=== PATIENT | male | born 1960 | race African-American/Black ===

== ENCOUNTER 2017-11-03 05:20 | Emergency (ER) | payer OTHER, BC ==
[~2017-11-03] VITALS: Ht 182.9 cm; Wt 90.9 kg
[~2017-11-03 05:20] MED LIST: LORTAB 7.5 OR; SEPTRA DS1 TAB OR
[2017-11-03] MEDS ORDERED: FLEXERIL PO (07:42)
[2017-11-03] MEDS ORDERED: MOTRIN800 MG PO (07:42)
[2017-11-03 07:48] VITALS: BP 157/80
== END 2017-11-03 07:55 | disposition home or self-care (01) | DRG 914 ==
LOC: ED 05:20
PROC: 0HQ1XZZ Repair Face Skin, External Approach (ICD-10-PCS; principal; 2017-11-03)
DX: S09.90XA Unspecified injury of head, initial encounter (principal); S01.111A Laceration without foreign body of right eyelid and periocular area, initial encounter; S63.502A Unspecified sprain of left wrist, initial encounter; V53.5XXA Driver of pick-up truck or van injured in collision with car, pick-up truck or van in traffic accident, initial encounter; Y92.413 State road as the place of occurrence of the external cause

== ENCOUNTER 2017-11-11 09:07 | Emergency (ER) | payer OTHER, BC ==
[~2017-11-11] VITALS: Ht 182.9 cm; Wt 81.0 kg
[~2017-11-11 09:07] MED LIST changes: +FLEXERIL PO; +MOTRIN800 MG PO
[2017-11-11 09:43] VITALS: BP 144/75
== END 2017-11-11 09:47 | disposition home or self-care (01) | DRG 950 ==
LOC: ED 09:07
DX: S01.111D Laceration without foreign body of right eyelid and periocular area, subsequent encounter (principal)

== ENCOUNTER 2019-01-22 13:03 | Day surgery (SDC) | payer BC ==
[~2019-01-22 13:03] MED LIST changes: +COMPAZINE10 MG PO; +NAPROXEN250 MG PO; +PERCOCET 5/321 COMBO PO; +VISTARIL25 MG PO
[2019-01-22 15:32] VITALS: BP 151/89
[2019-02-01] MEDS ORDERED: NAPROXEN375 MG PO (09:20)
== END 2019-01-22 15:40 | disposition home or self-care (01) | DRG 951 ==
LOC: ENDO 13:03
PROVIDERS: ATTEND Internal Medicine Gastroenterology
PROC: 0DBN8ZX Excision of Sigmoid Colon, Via Natural or Artificial Opening Endoscopic, Diagnostic (ICD-10-PCS; principal; 2019-01-22)
DX: Z12.11 Encounter for screening for malignant neoplasm of colon (principal); D12.5 Benign neoplasm of sigmoid colon; K64.4 Residual hemorrhoidal skin tags; K64.8 Other hemorrhoids

== ENCOUNTER 2019-02-04 06:18 | Day surgery (SDC) | payer BC ==
[~2019-02-04 06:18] MED LIST changes: +NAPROXEN375 MG PO
[2019-02-04] MEDS ORDERED: PERCOCET 5/325M1 TAB PO (09:31)
[2019-02-04 09:41] VITALS: BP 158/86
== END 2019-02-04 10:00 | disposition home or self-care (01) | DRG 585 ==
LOC: ORM 06:18
PROVIDERS: ATTEND Surgery
PROC: 0HBT0ZX Excision of Right Breast, Open Approach, Diagnostic (ICD-10-PCS; principal; 2019-02-04)
DX: N62 Hypertrophy of breast (principal)

== ENCOUNTER 2019-04-26 08:35 | Emergency (ER) | payer BC ==
[~2019-04-26] VITALS: Ht 180.3 cm; Wt 81.0 kg
[~2019-04-26 08:35] MED LIST changes: +PERCOCET 5/325M1 TAB PO
[2019-04-26] MEDS ORDERED: CEPHALEXIN500 M1 PO (09:01)
[2019-04-26] MEDS ORDERED: BACTRIM DS1 TAB PO (09:01)
[2019-04-26 09:35] VITALS: BP 128/70
== END 2019-04-26 09:35 | disposition home or self-care (01) | DRG 603 ==
LOC: ED 08:35
DX: L02.511 Cutaneous abscess of right hand (principal); L03.011 Cellulitis of right finger; B95.62 Methicillin resistant Staphylococcus aureus infection as the cause of diseases classified elsewhere

== ENCOUNTER 2019-04-28 08:10 | Emergency (ER) | payer BC ==
[~2019-04-28] VITALS: Ht 180.3 cm; Wt 77.2 kg
[~2019-04-28 08:10] MED LIST changes: +BACTRIM DS1 TAB PO; +CEPHALEXIN500 M1 PO
[2019-04-28] MEDS ORDERED: MUPIROCIN2 % EX (09:07)
[2019-04-28 09:35] VITALS: BP 135/83
== END 2019-04-28 09:35 | disposition home or self-care (01) | DRG 951 ==
LOC: ED 08:10
DX: Z48.01 Encounter for change or removal of surgical wound dressing (principal)